=== PATIENT | male | born 1990 | race Hispanic/Latino ===

== ENCOUNTER 2018-04-19 06:05 | Emergency (ER) | payer SELFPAY ==
[2018-04-19] MEDS ORDERED: TETANUS & DIPHTHERIA TOX,ADULT 0.5 ML VIAL ONE (06:32)
[2018-04-19] MEDS ORDERED: LIDOCAINE 1% MPF 30 ML VIAL ONE (06:33)
--- NOTE | 2018-04-19 06:53 | ER ---
Nurse's Notes [facility] Name: Jose Shipman Age: 28 yrs Sex: Male : 1990 Arrival Date: 04/19/2018 Time: 06:08 Bed 7 Private MD: Diagnosis: Laceration without foreign body of left ring finger without damage to nail;Laceration without foreign body of left little finger without damage to nail Presentation: 04/19 06:15 Presenting complaint: Patient states: he was playing around with a knife and cut his aa1 4th \T\ 5th digit on his R hand. Moderate bleeding noted. Transition of care: patient was not received from another setting of care. Complicating Factors: There are no complicating factors for this patient. Onset of symptoms was April 19, 2018. Risk Assessment: Do you want to hurt yourself or someone else? Patient reports no desire to harm self or others. Initial Sepsis Screen: Does the patient meet any 2 criteria? No. Patient's initial sepsis screen is negative. Does the patient have a suspected source of infection? No. Patient's initial sepsis screen is negative. Care prior to arrival: None. 06:15 Method Of Arrival: Ambulatory aa1 06:15 Acuity: DAQUAN 3 aa1 Triage Assessment: 06:17 General: Appears in no apparent distress. comfortable, Behavior is calm, cooperative, aa1 appropriate for age. Historical: - Allergies: 06:17 No Known Allergies; aa1 - Home Meds: 06:17 None [Active]; aa1 - PMHx: 06:17 None; aa1 - PSHx: 06:17 None; aa1 - Immunization history:: Last tetanus immunization: < 5 years ago. - Social history:: Smoking status: Patient uses tobacco products, smokes one-half pack cigarettes per day. - Ebola Screening: : No symptoms or risks identified at this time No symptoms or risks identified at this time. Screenin:17 Abuse screen: Denies threats or abuse. Nutritional screening: No deficits noted. ea Tuberculosis screening: No symptoms or risk factors identified. Fall Risk None identified. Assessment: 06:16 General: Appears in no apparent distress. comfortable, Behavior is calm, cooperative, rr5 appropriate for age. Pain: Complains of pain in palmar aspect of proximal phalanx of left little finger and palmar aspect of proximal phalanx of left ring finger Pain does not radiate. Pain currently is 5 out of 10 on a pain scale. Quality of pain is described as aching, Pain began suddenly. Neuro: Level of Consciousness is awake, alert, obeys commands, Oriented to person, place, time, situation. Cardiovascular: Capillary refill < 3 seconds Patient's skin is warm and dry. Respiratory: Airway is patent Respiratory effort is even, unlabored, Respiratory pattern is regular, symmetrical. GI: No signs and/or symptoms were reported involving the gastrointestinal system. : No signs and/or symptoms were reported regarding the genitourinary system. EENT: No signs and/or symptoms were reported regarding the EENT system. Derm: No signs and/or symptoms reported regarding the dermatologic system. Musculoskeletal: Capillary refill < 3 seconds, Range of motion: intact in all extremities. Injury Description: Laceration sustained to palmar aspect of proximal phalanx of left little finger and palmar aspect of proximal phalanx of left ring finger is clean, 0.5 to 2.5 cm long, is bleeding moderately a dressing was applied. 07:02 Reassessment: Patient and/or family updated on plan of care and expected duration. Pain ea level reassessed. Patient is alert, oriented x 3, equal unlabored respirations, skin warm/dry/pink. Discharge instruction given to patient and family, verbalized the understanding of instruction. Vital Signs: 06:17 BP 117 / 75; Pulse 107; Resp 18; Temp 98.6; Pulse Ox 97% on R/A; Weight 79.38 kg; aa1 Height 5 ft. 10 in. (177.80 cm); Pain 5/10; 07:00 BP 118 / 70; Pulse 95; Resp 18; Pulse Ox 99% ; rr5 06:17 Body Mass Index 25.11 (79.38 kg, 177.80 cm) aa1 ED Course: 06:08 Patient arrived in ED. ag3 06:12 Rebeca Watts FNP-C [facility]. snw 06:12 J Carlos Galindo MD is Attending Physician. snw 06:16 Darya Fenton, FLAKITO is Primary Nurse. ea 06:17 Triage completed. aa1 06:17 Patient has correct armband on for positive identification. Bed in low position. Call ea light in reach. 06:17 Arm band placed on right wrist. aa1 06:17 Arm band placed on right wrist. Patient placed in an exam room, on a stretcher, on ea pulse oximetry. 06:20 Pulse ox on. NIBP on. rr5 06:45 Assist provider with laceration repair on palmar aspect of middle phalanx of right ring ea finger and palmar aspect of middle phalanx of right little finger that was between 2.6 to 7.5 cm using sutures. Set up tray. Performed by Rebeca JAMES Patient tolerated well. 06:55 Assist provider with laceration repair Dressed with 4X4s, hibiclens. rr5 07:00 Patient did not have IV access during this emergency room visit. rr5 07:05 Patient did not have IV access during this emergency room visit. 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 Exp: rr5 08/15/2020. Lot #: [id number]. } Route: IM; Site: right deltoid; 07:07 Follow up: Response: No adverse reaction rr5 Outcome: 06:52 Discharge ordered by . apple 07:04 Discharged to home ambulatory, with family. ea 07:04 Condition: improved 07:04 Discharge instructions given to patient, family, Instructed on discharge instructions, follow up and referral plans. medication usage, Demonstrated understanding of instructions, follow-up care, medications, Prescriptions given X 2. 07:10 Patient left the ED. rr5 Signatures: Cassie Rodríguez RN RN aa1 Rebeca Watts FNP-C TABLE COVER FOLDER-Csnw Darya Fenton RN RN ea Gomez, Alice ag3 Roque, Raymond, RN RN rr5 Corrections: (The following items were deleted from the chart) 06:21 06:16 Pain: Complains of pain in palmar aspect of middle phalanx of right little finger rr5 and palmar aspect of middle phalanx of right ring finger Pain does not radiate. Pain currently is 5 out of 10 on a pain scale. Quality of pain is described as aching, Pain began suddenly, rr5 06:21 06:16 Injury Description: Laceration sustained to palmar aspect of middle phalanx of rr5 right little finger and palmar aspect of proximal phalanx of right ring finger is clean, 0.5 to 2.5 cm long, is bleeding moderately a dressing was applied rr5
--- NOTE | 2018-04-19 06:53 | EDPHYS ---
Physician Documentation [facility] Name: Jose Shipman Age: 28 yrs Sex: Male : 1990 Arrival Date: 04/19/2018 Time: 06:08 Bed 7 Private MD: ED Physician J Carlos Galindo HPI: 04/19 06:59 This 28 yrs old Male presents to ER via Ambulatory with complaints of snw Laceration To Hand. 06:59 The patient has a laceration related to: playing, knife (while intoxicated). The snw laceration(s) is(are) located on the left 4th and 5th finger. Onset: The symptoms/episode began/occurred suddenly, just prior to arrival. Associated signs and symptoms: The patient has no apparent associated signs or symptoms. It is unknown whether or not the patient has had similar symptoms in the past. The patient has not recently seen a physician. Historical: - Allergies: 06:17 No Known Allergies; aa1 - Home Meds: 06:17 None [Active]; aa1 - PMHx: 06:17 None; aa1 - PSHx: 06:17 None; aa1 - Immunization history:: Last tetanus immunization: < 5 years ago. - Social history:: Smoking status: Patient uses tobacco products, smokes one-half pack cigarettes per day. - Ebola Screening: : No symptoms or risks identified at this time No symptoms or risks identified at this time. ROS: 06:57 Constitutional: Negative for fever, chills, and weight loss, Eyes: Negative for injury, snw pain, redness, and discharge, ENT: Negative for injury, pain, and discharge, Neck: Negative for injury, pain, and swelling, Cardiovascular: Negative for chest pain, palpitations, and edema, Respiratory: Negative for shortness of breath, cough, wheezing, and pleuritic chest pain, Abdomen/GI: Negative for abdominal pain, nausea, vomiting, diarrhea, and constipation, Back: Negative for injury and pain, : Negative for injury, bleeding, discharge, and swelling, MS/Extremity: Negative for injury and deformity, Neuro: Negative for headache, weakness, numbness, tingling, and seizure, Psych: Negative for depression, anxiety, suicide ideation, homicidal ideation, and hallucinations. 06:57 Skin: Positive for laceration(s), of the palmar aspect of medial phalanx of left ring finger and left little finger. Exam: 06:55 Constitutional: This is a well developed, well nourished patient who is awake, alert, snw and in no acute distress. +ETOH Head/Face: Normocephalic, atraumatic. Eyes: Pupils equal round and reactive to light, extra-ocular motions intact. Lids and lashes normal. Conjunctiva and sclera are non-icteric and not injected. Cornea within normal limits. Periorbital areas with no swelling, redness, or edema. ENT: Nares patent. No nasal discharge, no septal abnormalities noted. Tympanic membranes are normal and external auditory canals are clear. Oropharynx with no redness, swelling, or masses, exudates, or evidence of obstruction, uvula midline. Mucous membranes moist. Neck: Trachea midline, no thyromegaly or masses palpated, and no cervical lymphadenopathy. Supple, full range of motion without nuchal rigidity, or vertebral point tenderness. No Meningismus. Chest/axilla: Normal chest wall appearance and motion. Nontender with no deformity. No lesions are appreciated. Cardiovascular: Regular rate and rhythm with a normal S1 and S2. No gallops, murmurs, or rubs. Normal PMI, no JVD. No pulse deficits. Respiratory: Lungs have equal breath sounds bilaterally, clear to auscultation and percussion. No rales, rhonchi or wheezes noted. No increased work of breathing, no retractions or nasal flaring. Abdomen/GI: Soft, non-tender, with normal bowel sounds. No distension or tympany. No guarding or rebound. No evidence of tenderness throughout. Back: No spinal tenderness. No costovertebral tenderness. Full range of motion. MS/ Extremity: Pulses equal, no cyanosis. Neurovascular intact. Full, normal range of motion. Neuro: Awake and alert, GCS 15, oriented to person, place, time, and situation. Cranial nerves II-XII grossly intact. Motor strength 5/5 in all extremities. Sensory grossly intact. Cerebellar exam normal. Normal gait. Psych: Awake, alert, with orientation to person, place and time. Behavior, mood, and affect are within normal limits. 06:55 Skin: Appearance: normal except for affected area, injury, laceration(s), the wound is approximately 2.5 cm(s), with a depth of 1 cm(s), of the florez aspect of medial phalanx of left ring finger, the second wound is approximately 2 cm(s), with a depth of 1 cm(s), of the palmar aspect of medial phalanx of left little finger. Vital Signs: 06:17 BP 117 / 75; Pulse 107; Resp 18; Temp 98.6; Pulse Ox 97% on R/A; Weight 79.38 kg; aa1 Height 5 ft. 10 in. (177.80 cm); Pain 5/10; 07:00 BP 118 / 70; Pulse 95; Resp 18; Pulse Ox 99% ; rr5 06:17 Body Mass Index 25.11 (79.38 kg, 177.80 cm) aa1 Laceration: 06:53 Wound Repair of 4.5cm ( 1.8in ) subcutaneous laceration to florez aspect of medial snw phalanx of left ring and little finger. Linear shaped.. Arterial bleeding noted.. Distal neuro/vascular/tendon intact. Anesthesia: Digital block administered with 8 mls of 1% lidocaine. Wound prep: Moderate cleansing with hibiclenz by ia. Skin closed with 10 4-0 Prolene using simple sutures and sterile technique. Dressed with pressure dressing, non-adherent dressing. Patient tolerated well. MDM: 06:12 Patient medically screened. snw 06:59 Data reviewed: vital signs, nurses notes. Data interpreted: Pulse oximetry: on room air snw is 97 %. Interpretation: normal. Counseling: I had a detailed discussion with the patient and/or guardian regarding: the historical points, exam findings, and any diagnostic results supporting the discharge/admit diagnosis, the need for outpatient follow up, to return to the emergency department if symptoms worsen or persist or if there are any questions or concerns that arise at home. Special discussion: I discussed in detail with the patient the higher chance of wound infection based on his presenting history. Based on the history and exam findings, there is no indication for further emergent testing or inpatient evaluation. I discussed with the patient/guardian the need to see the primary care provider for further evaluation of the symptoms. 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 Exp: rr5 08/15/2020. Lot #: [id number]. } Route: IM; Site: right deltoid; 07:07 Follow up: Response: No adverse reaction rr5 Disposition: 04/19/18 06:52 Discharged to Home. Impression: Laceration without foreign body of left ring finger without damage to nail, Laceration without foreign body of left little finger without damage to nail. - Condition is Stable. - Discharge Instructions: Laceration Care, Adult, Sutured Wound Care, VIS, Tetanus, Diphtheria (Td) - CDC. - Prescriptions for Keflex 500 mg Oral Capsule - take 1 capsule by ORAL route every 8 hours for 10 days; 30 capsule. Diclofenac Sodium 75 mg Oral Tablet Sustained Release - take 1 tablet by ORAL route 2 times per day; 30 tablet. - Work release form, Medication Reconciliation Form, Thank You Letter, Antibiotic Education, Prescription Opioid Use form. - Follow up: Private Physician; When: 10 - 14 days; Reason: Wound Recheck, Recheck today's complaints, Staple/Suture removal, Re-evaluation by your physician. Follow up: Emergency Department; When: As needed; Reason: Staple/Suture removal, 14 days. Addendum: 04/21/2018 20:59 Co-signature as Attending Physician, J Carlos Galindo MD Available for consultation at p s1 all times . Signatures: Cassie Rodríguez, RN RN aa1 Rebeca Watst, AUTOMATIC COIN MACHINE MECHANIC-C AUTOMATIC COIN MACHINE MECHANIC-Csnw Darya Fenton RN J Carlos Cordoba ea, MD MD ps1 Roque, Raymond, RN RN rr5 Corrections: (The following items were deleted from the chart) 04/19 07:10 06:52 04/19/2018 06:52 Discharged to Home. Impression: Laceration without foreign body rr5 of left ring finger without damage to nail; Laceration without foreign body of left little finger without damage to nail. Condition is Stable. Forms are Medication Reconciliation Form, Thank You Letter, Antibiotic Education, Prescription Opioid Use. Follow up: Private Physician; When: 10 - 14 days; Reason: Wound Recheck, Recheck today's complaints, Staple/Suture removal, Re-evaluation by your physician. Follow up: Emergency Department; When: As needed; Reason: Staple/Suture removal, 14 days. snw
== END 2018-04-19 07:10 | disposition home or self-care (01) ==
LOC: ER 06:05
PROC: 0JQK0ZZ Repair Left Hand Subcutaneous Tissue and Fascia, Open Approach (ICD-10-PCS; principal; 2018-04-19)
DX: S61.215A Laceration without foreign body of left ring finger without damage to nail, initial encounter (principal); S61.217A Laceration without foreign body of left little finger without damage to nail, initial encounter; W26.0XXA Contact with knife, initial encounter; Z23 Encounter for immunization; F17.210 Nicotine dependence, cigarettes, uncomplicated
CPT/HCPCS: 90714; 99284